=== PATIENT | male | born 1950 | race Caucasian/White ===

== ENCOUNTER 2017-04-09 09:35 | Emergency (ER) | payer SELFPAY ==
[~2017-04-09] VITALS: Wt 95.7 kg
[~2017-04-09 09:35] MED LIST: ASPIR-TRIN325 M1 PO; AUGMENTIN 875-1 EAC1 PO; BACTRIM DS 8001 TAB PO; ECOTRIN325 M1 PO; METFORMIN
[2017-04-09 16:04] VITALS: BP 138/79
== END 2017-04-09 16:05 | disposition other institution (70) ==
LOC: ED 09:35
DX: E13.10 Other specified diabetes mellitus with ketoacidosis without coma (principal); Z79.4 Long term (current) use of insulin; E11.42 Type 2 diabetes mellitus with diabetic polyneuropathy; E11.621 Type 2 diabetes mellitus with foot ulcer; L97.529 Non-pressure chronic ulcer of other part of left foot with unspecified severity; Z89.411 Acquired absence of right great toe; N39.0 Urinary tract infection, site not specified; Z91.14 Patient's other noncompliance with medication regimen
CPT/HCPCS: J0295; J1815; J7030

== ENCOUNTER 2017-04-14 16:25 | Inpatient (IN) | payer MEDICARE ==
[~2017-04-14] VITALS: Ht 175.3 cm; Wt 108.6 kg
[2017-04-14 19:24] VITALS: BP 134/74
[2017-04-14 19:56] VITALS: BP 134/7
[2017-04-15 06:16] VITALS: BP 146/79
[2017-04-15 18:30] VITALS: BP 128/79
[2017-04-16 06:16] VITALS: BP 158/78
[2017-04-16 18:11] VITALS: BP 135/71
[2017-04-17 06:23] VITALS: BP 123/84
[2017-04-17 18:23] VITALS: BP 147/72
[2017-04-18 06:25] VITALS: BP 123/72
[2017-04-18 18:01] VITALS: BP 126/71
[2017-04-18 18:10] VITALS: BP 118/72
[2017-04-19 06:23] VITALS: BP 111/57
[2017-04-19 18:38] VITALS: BP 122/92
[2017-04-20 06:21] VITALS: BP 124/78
[2017-04-20 18:19] VITALS: BP 111/53
[2017-04-21 06:20] VITALS: BP 101/68
[2017-04-21 18:22] VITALS: BP 118/62
[2017-04-22 06:29] VITALS: BP 102/60
[2017-04-22 18:07] VITALS: BP 119/66
[2017-04-23 06:22] VITALS: BP 121/79
[2017-04-23 18:36] VITALS: BP 117/64
[2017-04-24 06:24] VITALS: BP 115/57
[2017-04-24 18:35] VITALS: BP 112/55
[2017-04-25 06:24] VITALS: BP 121/78
== END 2017-04-25 08:27 | disposition short-term general hospital (02) | DRG 872 ==
LOC: MED/SURG 16:25
PROVIDERS: ADMIT Internal Medicine
DX: A41.9 Sepsis, unspecified organism (principal); M86.172 Other acute osteomyelitis, left ankle and foot; E23.0 Hypopituitarism; E11.42 Type 2 diabetes mellitus with diabetic polyneuropathy; E11.69 Type 2 diabetes mellitus with other specified complication; B95.61 Methicillin susceptible Staphylococcus aureus infection as the cause of diseases classified elsewhere
CPT/HCPCS: J1071; J1644; J1650; J1815; J2997; J3370; J7050

== ENCOUNTER 2017-04-27 13:42 | Inpatient (IN) | payer MEDICARE ==
[~2017-04-27] VITALS: Ht 175.3 cm; Wt 104.4 kg
[2017-04-27 15:00] VITALS: BP 103/68
[2017-04-27 15:45] VITALS: BP 103/68
[2017-04-27] MEDS ORDERED: GLUCOPHAGE1000 MG PO (18:00)
[2017-04-27] MEDS ORDERED: VIBRAMYCIN HYC100 MG PO (18:00)
[2017-04-27] MEDS ORDERED: JANUVIA 100MG100 MG (18:01)
[2017-04-27] MEDS ORDERED: LEVEMIR100 U/M1 SQ (18:01)
[2017-04-27] MEDS ORDERED: PROTONIX TR40 M1 PO (18:01)
[2017-04-27] MEDS ORDERED: NORCO 325 MG-51 TA1 PO (18:02)
[2017-04-27 18:30] VITALS: BP 124/70
[2017-04-28 06:21] VITALS: BP 125/72
[2017-04-28 18:33] VITALS: BP 101/59
[2017-04-29 06:20] VITALS: BP 122/75
[2017-04-29] MEDS ORDERED: METFORMIN HCL1000 M1 PO (10:21)
[2017-04-29] MEDS ORDERED: CHILDREN'S ASPI81 M1 PO (10:22)
[2017-04-29] MEDS ORDERED: HYDROCODONE BIT1 T45 PO (10:22)
[2017-04-29 10:25] VITALS: BP 110/80
[2017-04-29 10:46] VITALS: BP 110/80
[2017-04-29] MEDS ORDERED: GLIMEPIRIDE4 MG PO (11:40)
== END 2017-04-29 12:31 | DRG 560 ==
LOC: MED/SURG 13:42
PROVIDERS: ADMIT Nurse Practitioner Primary Care
DX: Z47.81 Encounter for orthopedic aftercare following surgical amputation (principal); N39.0 Urinary tract infection, site not specified; E66.2 Morbid (severe) obesity with alveolar hypoventilation; Z89.412 Acquired absence of left great toe; R53.81 Other malaise; B95.62 Methicillin resistant Staphylococcus aureus infection as the cause of diseases classified elsewhere; E11.40 Type 2 diabetes mellitus with diabetic neuropathy, unspecified; Z79.4 Long term (current) use of insulin; Z68.33 Body mass index [BMI] 33.0-33.9, adult
CPT/HCPCS: J1650; J1815

== ENCOUNTER → 2017-05-13 | Outpatient (REF) ==
[2017-05-03 15:17] VITALS: BP 123/78
[~2017-05-13] MED LIST changes: +CHILDREN'S ASPI81 M1 PO; +GLIMEPIRIDE4 MG PO; +GLUCOPHAGE1000 MG PO; +HYDROCODONE BIT1 T45 PO; +JANUVIA 100MG100 MG; +LEVEMIR100 U/M1 SQ; +METFORMIN HCL1000 M1 PO; +NORCO 325 MG-51 TA1 PO; +PROTONIX TR40 M1 PO; +VIBRAMYCIN HYC100 MG PO
== END ==
LOC: LAB 12:13
DX: N39.0 Urinary tract infection, site not specified (principal)

== ENCOUNTER 2017-05-30 12:37 | Emergency (ER) | payer MEDICARE ==
[~2017-05-30] VITALS: Wt 106.4 kg
[2017-05-30 15:02] VITALS: BP 128/83
== END 2017-05-30 15:06 | disposition home or self-care (01) ==
LOC: ED 12:37
DX: R11.0 Nausea (principal); R10.84 Generalized abdominal pain; R61 Generalized hyperhidrosis; E73.9 Lactose intolerance, unspecified; E11.9 Type 2 diabetes mellitus without complications; Z79.84 Long term (current) use of oral hypoglycemic drugs

== ENCOUNTER → 2017-06-28 | Outpatient (CLI) | payer MEDICARE, MEDICAID ==
[2017-05-30 15:02] VITALS: BP 128/83
== END ==
LOC: LAB 05:05
DX: E11.42 Type 2 diabetes mellitus with diabetic polyneuropathy (principal); E87.6 Hypokalemia; E78.2 Mixed hyperlipidemia

== ENCOUNTER → 2017-10-24 | Outpatient (CLI) | payer MEDICAID | LOC: LAB 11:12 | DX: J11.1 Influenza due to unidentified influenza virus with other respiratory manifestations (principal) ==

== ENCOUNTER → 2017-11-03 | Outpatient (CLI) | payer MEDICAID ==
[2017-11-03 10:50] LABS: EOS # 0.1 (0.04-0.40); EOS % 1.6 % (0.0-4.0); HEMATOCRIT 47.3 % (42.0-52.0); HEMOGLOBIN 15.5 g/dL (13.5-18.0); LYMPH# 2.1 (1.50-4.00); MEAN CELL VOLUME 90 fl (78-100); MEAN CORPUSCULAR HEMOGLOBIN 30 pg (27-31); MEAN CORPUSCULAR HGB CONC 33 g/dL (33-37); MEAN PLATELET VOLUME 10.1 fl (7.4-10.4); MONO # 0.5 (0.20-0.80); NEU # 4.8 (1.40-6.50); PLATELET COUNT 265 K/mm3 (130-400); RED BLOOD COUNT 5.24 M/mm3 (4.20-5.60); WHITE BLOOD COUNT 7.5 K/mm3 (4.8-10.8)
== END ==
LOC: RAD 10:30
PROVIDERS: Nurse Practitioner Family
DX: R05 Cough (principal)

== ENCOUNTER → 2018-01-12 | Outpatient (CLI) | payer MEDICARE, MEDICAID ==
[2018-01-12 11:02] LABS: EOS # 0.2 (0.04-0.40); HEMATOCRIT 47.6 % (42.0-52.0); HEMOGLOBIN 15.9 g/dL (13.5-18.0); LYMPH# 1.9 (1.50-4.00); MEAN CELL VOLUME 91 fl (78-100); MEAN CORPUSCULAR HEMOGLOBIN 30 pg (27-31); MEAN CORPUSCULAR HGB CONC 33 g/dL (33-37); MONO # 0.7 (0.20-0.80); NEU # 5.4 (1.40-6.50); PLATELET COUNT 227 K/mm3 (130-400); RED BLOOD COUNT 5.26 M/mm3 (4.20-5.60); RED CELL DISTRIBUTION WIDTH 13.9 % (11.5-14.5); WHITE BLOOD COUNT 8.2 K/mm3 (4.8-10.8)
[2018-01-12 11:20] LABS: ALBUMIN 4.1 g/dL (3.5-5.0); BUN/CREATININE RATIO 18.8 (6.0-26.0); CALCIUM 9.3 mg/dL (8.4-10.2); POTASSIUM 4.3 mmol/L (3.6-5.0); TOTAL BILIRUBIN 0.4 mg/dL (0.2-1.3); TOTAL PROTEIN 7.8 g/dL (6.3-8.2)
== END ==
LOC: LAB 10:47
PROVIDERS: Internal Medicine
DX: E11.9 Type 2 diabetes mellitus without complications (principal); Z12.5 Encounter for screening for malignant neoplasm of prostate; E78.2 Mixed hyperlipidemia

== ENCOUNTER → 2018-01-30 | Day surgery (SDC) | payer MEDICARE, MEDICAID | LOC: MSO 08:08 | DX: D04.39 Carcinoma in situ of skin of other parts of face (principal); E11.9 Type 2 diabetes mellitus without complications; Z79.82 Long term (current) use of aspirin; Z79.84 Long term (current) use of oral hypoglycemic drugs | CPT/HCPCS: 2543; A4649 ==

== ENCOUNTER → 2018-06-13 | Outpatient (CLI) | payer MEDICARE, MEDICAID ==
[2018-06-13 10:48] LABS: BASO # 0.1 (0.02-0.10); EOS # 0.2 (0.04-0.40); EOS % 2.3 % (0.0-4.0); HEMATOCRIT 49.1 % (42.0-52.0); HEMOGLOBIN 16.3 g/dL (13.5-18.0); LYMPH# 1.8 (1.50-4.00); MEAN CELL VOLUME 91 fl (78-100); MEAN CORPUSCULAR HEMOGLOBIN 30 pg (27-31); MEAN CORPUSCULAR HGB CONC 33 g/dL (33-37); MEAN PLATELET VOLUME 10.3 fl (7.4-10.4); MONO # 0.7 (0.20-0.80); NEU # 6.5 (1.40-6.50); PLATELET COUNT 246 K/mm3 (130-400); RED BLOOD COUNT 5.37 M/mm3 (4.20-5.60); RED CELL DISTRIBUTION WIDTH 14.4 % (11.5-14.5); WHITE BLOOD COUNT 9.3 K/mm3 (4.8-10.8)
[2018-06-13 11:12] LABS: URINE APPEARANCE CLEAR; URINE BILIRUBIN NEGATIVE (NEGATIVE); URINE BLOOD NEGATIVE (NEGATIVE); URINE COLOR YELLOW; URINE GLUCOSE NEGATIVE (NEGATIVE); URINE KETONE NEGATIVE (NEGATIVE); URINE LEUKOCYTE ESTERASE 1+ (NEGATIVE); URINE NITRATE NEGATIVE (NEGATIVE); URINE PROTEIN(semi-quant) NEGATIVE (NEGATIVE); URINE UROBILINOGEN NORMAL (NORMAL); URINE WBC 16-30 /hpf (0-3)
[2018-06-13 11:13] LABS: URINE MUCUS PRESENT (NOT PRESENT)
[2018-06-13 11:20] LABS: CALCIUM 9.2 mg/dL (8.4-10.2); POTASSIUM 4.6 mmol/L (3.6-5.0); TOTAL BILIRUBIN 0.7 mg/dL (0.2-1.3); TOTAL PROTEIN 7.3 g/dL (6.3-8.2)
[2018-06-13 12:46] LABS: ERYTHROCYTE SEDIMENTATION RATE 13 mm/hr (0-20)
[2018-06-15 01:01] LABS: TESTOSTERONE 533 ng/dL (221-716)
== END ==
LOC: LAB 10:21
PROVIDERS: Internal Medicine
DX: Z12.11 Encounter for screening for malignant neoplasm of colon (principal); E11.9 Type 2 diabetes mellitus without complications; E78.2 Mixed hyperlipidemia; E23.0 Hypopituitarism; N39.0 Urinary tract infection, site not specified

== ENCOUNTER → 2018-08-07 | Day surgery (SDC) | payer MEDICARE, MEDICAID | LOC: MSO 10:19 | DX: C44.329 Squamous cell carcinoma of skin of other parts of face (principal); D04.39 Carcinoma in situ of skin of other parts of face; Z79.82 Long term (current) use of aspirin; Z79.84 Long term (current) use of oral hypoglycemic drugs; Z79.899 Other long term (current) drug therapy; E11.9 Type 2 diabetes mellitus without complications; E78.5 Hyperlipidemia, unspecified; E66.9 Obesity, unspecified | CPT/HCPCS: A4649 ==

== ENCOUNTER → 2018-12-01 | Outpatient (CLI) | payer MEDICARE, MEDICAID ==
[2018-12-01 14:37] LABS: CALCIUM 8.9 mg/dL (8.4-10.2); POTASSIUM 4.4 mmol/L (3.6-5.0); TOTAL BILIRUBIN 0.4 mg/dL (0.2-1.3); TOTAL PROTEIN 7.3 g/dL (6.3-8.2)
[2018-12-01 14:47] LABS: EOS # 0.4 (0.04-0.40); EOS % 4.1 % (0.0-4.0); HEMATOCRIT 49.2 % (42.0-52.0); HEMOGLOBIN 16.2 g/dL (13.5-18.0); LYMPH# 2.1 (1.50-4.00); MEAN CELL VOLUME 92 fl (78-100); MEAN CORPUSCULAR HEMOGLOBIN 30 pg (27-31); MEAN CORPUSCULAR HGB CONC 33 g/dL (33-37); MEAN PLATELET VOLUME 10.8 fl (7.4-10.4); MONO # 0.9 (0.20-0.80); NEU # 5.9 (1.40-6.50); PLATELET COUNT 269 K/mm3 (130-400); RED BLOOD COUNT 5.37 M/mm3 (4.20-5.60); RED CELL DISTRIBUTION WIDTH 14.2 % (11.5-14.5); WHITE BLOOD COUNT 9.4 K/mm3 (4.8-10.8)
== END ==
LOC: LAB 13:57
PROVIDERS: Internal Medicine
DX: E11.9 Type 2 diabetes mellitus without complications (principal); E78.2 Mixed hyperlipidemia

== ENCOUNTER → 2019-04-12 | Outpatient (CLI) | payer MEDICARE, MEDICAID ==
[2019-04-12 11:35] LABS: BASO # 0.1 (0.02-0.10); EOS # 0.4 (0.04-0.40); EOS % 3.6 % (0.0-4.0); HEMATOCRIT 49.5 % (42.0-52.0); HEMOGLOBIN 16.7 g/dL (13.5-18.0); LYMPH# 1.8 (1.50-4.00); MEAN CELL VOLUME 91 fl (78-100); MEAN CORPUSCULAR HEMOGLOBIN 31 pg (27-31); MEAN CORPUSCULAR HGB CONC 34 g/dL (33-37); MEAN PLATELET VOLUME 10.4 fl (7.4-10.4); MONO # 0.8 (0.20-0.80); NEU # 7.5 (1.40-6.50); PLATELET COUNT 264 K/mm3 (130-400); RED BLOOD COUNT 5.45 M/mm3 (4.20-5.60); WHITE BLOOD COUNT 10.6 K/mm3 (4.8-10.8)
[2019-04-12 11:43] LABS: ALBUMIN 3.8 g/dL (3.4-4.8); POTASSIUM 4.4 mmol/L (3.5-5.1)
[2019-04-12 11:44] LABS: CALCIUM 9.5 mg/dL (8.3-10.5)
[2019-04-12 11:45] LABS: TOTAL PROTEIN 7.2 g/dL (6.2-8.1)
[2019-04-12 11:47] LABS: TOTAL BILIRUBIN 0.7 mg/dL (0.2-1.2)
== END ==
LOC: LAB 11:25
PROVIDERS: Internal Medicine
DX: E78.2 Mixed hyperlipidemia (principal); E11.9 Type 2 diabetes mellitus without complications

== ENCOUNTER → 2019-11-15 | Outpatient (CLI) | payer MEDICARE, MEDICAID ==
[2019-11-15 11:11] LABS: EOS # 0.1 (0.04-0.40); EOS % 1.5 % (0.0-4.0); HEMATOCRIT 48.3 % (42.0-52.0); HEMOGLOBIN 16.1 g/dL (13.5-18.0); LYMPH# 1.5 (1.50-4.00); MEAN CELL VOLUME 91 fl (78-100); MEAN CORPUSCULAR HEMOGLOBIN 30 pg (27-31); MEAN CORPUSCULAR HGB CONC 33 g/dL (33-37); MEAN PLATELET VOLUME 10.3 fl (7.4-10.4); MONO # 0.8 (0.20-0.80); PLATELET COUNT 202 K/mm3 (130-400); RED BLOOD COUNT 5.32 M/mm3 (4.20-5.60); RED CELL DISTRIBUTION WIDTH 13.8 % (11.5-14.5); WHITE BLOOD COUNT 8.4 K/mm3 (4.8-10.8)
[2019-11-15 11:20] LABS: ALBUMIN 3.8 g/dL (3.4-4.8)
[2019-11-15 11:21] LABS: CALCIUM 8.8 mg/dL (8.3-10.5)
[2019-11-15 11:23] LABS: TOTAL PROTEIN 7.2 g/dL (6.2-8.1)
[2019-11-15 11:24] LABS: TOTAL BILIRUBIN 0.6 mg/dL (0.2-1.2)
[2019-11-15 11:30] LABS: MAGNESIUM 1.78 mg/dL (1.60-2.60)
[2019-11-15 12:14] LABS: ERYTHROCYTE SEDIMENTATION RATE 14 mm/hr (0-20)
[2019-11-15 16:38] LABS: PH-URINE 5.5 (5.0 - 8.0); URINE APPEARANCE HAZY; URINE BILIRUBIN NEGATIVE (NEGATIVE); URINE BLOOD NEGATIVE (NEGATIVE); URINE COLOR YELLOW; URINE GLUCOSE NEGATIVE (NEGATIVE); URINE KETONE NEGATIVE (NEGATIVE); URINE LEUKOCYTE ESTERASE TRACE (NEGATIVE); URINE NITRATE NEGATIVE (NEGATIVE); URINE PROTEIN(semi-quant) TRACE mg/dL (NEGATIVE); URINE UROBILINOGEN NORMAL (NORMAL)
[2019-11-15 16:39] LABS: URINE MUCUS PRESENT (NOT PRESENT)
[2019-11-15 23:49] LABS: TESTOSTERONE 184 ng/dL (221-716)
== END ==
LOC: LAB 10:55
PROVIDERS: Internal Medicine
DX: Z12.5 Encounter for screening for malignant neoplasm of prostate (principal); Z12.11 Encounter for screening for malignant neoplasm of colon; E11.42 Type 2 diabetes mellitus with diabetic polyneuropathy; E78.2 Mixed hyperlipidemia; E23.0 Hypopituitarism

== ENCOUNTER → 2020-04-29 | Outpatient (CLI) | payer MEDICARE, MEDICAID ==
[2020-04-29 11:20] LABS: EOS # 0.3 (0.04-0.40); EOS % 2.5 % (0.0-4.0); HEMATOCRIT 49.5 % (42.0-52.0); HEMOGLOBIN 16.3 g/dL (13.5-18.0); MEAN CELL VOLUME 92 fl (78-100); MEAN CORPUSCULAR HEMOGLOBIN 30 pg (27-31); MEAN CORPUSCULAR HGB CONC 33 g/dL (33-37); MEAN PLATELET VOLUME 10.2 fl (7.4-10.4); MONO # 0.8 (0.20-0.80); NEU # 6.7 (1.40-6.50); PLATELET COUNT 266 K/mm3 (130-400); RED BLOOD COUNT 5.36 M/mm3 (4.20-5.60); RED CELL DISTRIBUTION WIDTH 13.6 % (11.5-14.5); WHITE BLOOD COUNT 9.9 K/mm3 (4.8-10.8)
[2020-04-29 11:34] LABS: ALBUMIN 3.9 g/dL (3.4-4.8); POTASSIUM 4.8 mmol/L (3.5-5.1)
[2020-04-29 11:35] LABS: CALCIUM 9.3 mg/dL (8.3-10.5)
[2020-04-29 11:36] LABS: TOTAL PROTEIN 7.3 g/dL (6.2-8.1)
[2020-04-29 11:38] LABS: TOTAL BILIRUBIN 0.5 mg/dL (0.2-1.2)
== END ==
LOC: LAB 10:56
PROVIDERS: Internal Medicine
DX: E11.42 Type 2 diabetes mellitus with diabetic polyneuropathy (principal); E78.2 Mixed hyperlipidemia; K90.9 Intestinal malabsorption, unspecified

== ENCOUNTER → 2020-05-28 | Outpatient (CLI) | payer MEDICARE, MEDICAID | LOC: LAB 10:19 | DX: K90.9 Intestinal malabsorption, unspecified (principal); G63 Polyneuropathy in diseases classified elsewhere ==

== ENCOUNTER → 2020-09-15 | Outpatient (CLI) | payer MEDICARE, MEDICAID ==
[2020-09-15 09:35] LABS: EOS # 0.3 (0.04-0.40); EOS % 2.6 % (0.0-4.0); HEMATOCRIT 47.8 % (42.0-52.0); HEMOGLOBIN 15.6 g/dL (13.5-18.0); MEAN CELL VOLUME 93 fl (78-100); MEAN CORPUSCULAR HEMOGLOBIN 30 pg (27-31); MEAN CORPUSCULAR HGB CONC 33 g/dL (33-37); MEAN PLATELET VOLUME 10.4 fl (7.4-10.4); MONO # 0.7 (0.20-0.80); NEU # 6.6 (1.40-6.50); PLATELET COUNT 260 K/mm3 (130-400); RED BLOOD COUNT 5.17 M/mm3 (4.20-5.60); WHITE BLOOD COUNT 9.7 K/mm3 (4.8-10.8)
[2020-09-15 09:42] LABS: ALBUMIN 3.8 g/dL (3.4-4.8)
[2020-09-15 09:43] LABS: POTASSIUM 4.6 mmol/L (3.5-5.1)
[2020-09-15 09:45] LABS: TOTAL PROTEIN 7.1 g/dL (6.2-8.1)
[2020-09-15 09:47] LABS: TOTAL BILIRUBIN 0.5 mg/dL (0.2-1.2)
== END ==
LOC: LAB 09:11
PROVIDERS: Internal Medicine
DX: E11.9 Type 2 diabetes mellitus without complications (principal); K90.9 Intestinal malabsorption, unspecified

== ENCOUNTER → 2020-12-16 | Outpatient (CLI) | payer MEDICARE, MEDICAID | LOC: LAB 11:23 | DX: Z12.5 Encounter for screening for malignant neoplasm of prostate (principal); G62.9 Polyneuropathy, unspecified; E11.9 Type 2 diabetes mellitus without complications; K90.9 Intestinal malabsorption, unspecified ==

== ENCOUNTER → 2022-01-14 | Outpatient (CLI) | payer MEDICARE, MEDICAID ==
[2022-01-14 16:05] LABS: BASO # 0.06 K/mm3 (0.02-0.10); EOS # 0.24 K/mm3 (0.04-0.40); EOS % 2.4 % (0.0-4.0); HEMATOCRIT 46.8 % (42.0-52.0); HEMOGLOBIN 15.6 g/dL (13.5-18.0); LYMPH# 2.36 K/mm3 (1.50-4.00); MEAN CELL VOLUME 92 fl (78-100); MEAN CORPUSCULAR HEMOGLOBIN 31 pg (27-31); MEAN CORPUSCULAR HGB CONC 33 g/dL (33-37); MONO # 0.87 K/mm3 (0.20-0.80); NEU # 6.46 K/mm3 (1.40-6.50); PLATELET COUNT 256 K/mm3 (130-400); RED BLOOD COUNT 5.08 M/mm3 (4.20-5.60); RED CELL DISTRIBUTION WIDTH 12.7 % (11.5-14.5)
[2022-01-14 16:15] LABS: POTASSIUM 4.3 mmol/L (3.5-5.1)
[2022-01-14 16:16] LABS: CALCIUM 9.6 mg/dL (8.3-10.5)
[2022-01-14 16:18] LABS: TOTAL PROTEIN 7.2 g/dL (6.2-8.1)
[2022-01-14 16:19] LABS: TOTAL BILIRUBIN 0.5 mg/dL (0.2-1.2)
[2022-01-14 16:24] LABS: MAGNESIUM 1.86 mg/dL (1.60-2.60)
[2022-01-14 16:58] LABS: URINE APPEARANCE HAZY; URINE COLOR YELLOW; URINE PROTEIN(semi-quant) 1+ (NEGATIVE)
[2022-01-14 16:59] LABS: URINE BILIRUBIN NEGATIVE (NEGATIVE); URINE BLOOD NEGATIVE (NEGATIVE); URINE KETONE NEGATIVE (NEGATIVE); URINE LEUKOCYTE ESTERASE 2+ (NEGATIVE); URINE NITRATE NEGATIVE (NEGATIVE); URINE UROBILINOGEN NORMAL (NORMAL)
[2022-01-14 17:01] LABS: URINE MUCUS PRESENT (NOT PRESENT)
[2022-01-14 17:13] LABS: ERYTHROCYTE SEDIMENTATION RATE 16 mm/hr (0-20)
[2022-01-15 17:05] LABS: TESTOSTERONE 273 ng/dL (221-716)
== END ==
LOC: LAB 15:39
PROVIDERS: Internal Medicine
DX: L89.899 Pressure ulcer of other site, unspecified stage (principal); L57.0 Actinic keratosis; K90.9 Intestinal malabsorption, unspecified; E23.0 Hypopituitarism; E78.2 Mixed hyperlipidemia; G62.9 Polyneuropathy, unspecified; E11.9 Type 2 diabetes mellitus without complications; C44.329 Squamous cell carcinoma of skin of other parts of face; M54.50 Low back pain, unspecified

== ENCOUNTER → 2022-07-16 | Outpatient (CLI) | payer MEDICARE, MEDICAID ==
[2022-07-16 11:39] LABS: BASO # 0.03 K/mm3 (0.02-0.10); EOS # 0.25 K/mm3 (0.04-0.40); EOS % 2.5 % (0.0-4.0); HEMATOCRIT 46.8 % (42.0-52.0); HEMOGLOBIN 15.6 g/dL (13.5-18.0); LYMPH# 2.07 K/mm3 (1.50-4.00); MEAN CELL VOLUME 93 fl (78-100); MEAN CORPUSCULAR HEMOGLOBIN 31 pg (27-31); MEAN CORPUSCULAR HGB CONC 33 g/dL (33-37); MEAN PLATELET VOLUME 10.4 fl (7.4-10.4); MONO # 0.64 K/mm3 (0.20-0.80); NEU # 6.84 K/mm3 (1.40-6.50); PLATELET COUNT 223 K/mm3 (130-400); RED BLOOD COUNT 5.04 M/mm3 (4.20-5.60); RED CELL DISTRIBUTION WIDTH 13.1 % (11.5-14.5); WHITE BLOOD COUNT 9.9 K/mm3 (4.8-10.8)
[2022-07-16 11:51] LABS: POTASSIUM 4.5 mmol/L (3.5-5.1)
[2022-07-16 11:52] LABS: ALBUMIN 3.9 g/dL (3.4-4.8)
[2022-07-16 11:53] LABS: CALCIUM 9.3 mg/dL (8.3-10.5)
[2022-07-16 11:54] LABS: TOTAL PROTEIN 7.1 g/dL (6.2-8.1)
[2022-07-16 12:10] LABS: MAGNESIUM 1.84 mg/dL (1.60-2.60); TOTAL BILIRUBIN 0.4 mg/dL (0.2-1.2)
[2022-07-16 12:45] LABS: ERYTHROCYTE SEDIMENTATION RATE 15 mm/hr (0-20)
[2022-07-16 23:10] LABS: TESTOSTERONE 235 ng/dL (221-716)
== END ==
LOC: LAB 11:07
PROVIDERS: Internal Medicine
DX: K90.9 Intestinal malabsorption, unspecified (principal); E11.9 Type 2 diabetes mellitus without complications; E78.2 Mixed hyperlipidemia; E23.0 Hypopituitarism; C44.329 Squamous cell carcinoma of skin of other parts of face; M54.50 Low back pain, unspecified; L89.899 Pressure ulcer of other site, unspecified stage; G62.9 Polyneuropathy, unspecified; M62.81 Muscle weakness (generalized); R09.81 Nasal congestion

== ENCOUNTER 2023-05-12 20:51 | Inpatient (IN) | payer MEDICARE, MEDICAID ==
[~2023-05-12] VITALS: Ht 175.3 cm; Wt 110.6 kg
[~2023-05-12 20:51] MED LIST changes: +AMOXICILLIN875 MG PO; +ATORVASTATIN CA20 MG PO; +CIPRO 500MG TA500 MG PO; +CIPRO500 M1 PO; +COLACE100 M1 PO; +FLONASE ALLERG9.9 ML NS; +LEVOCETIRIZINE D5 MG PO; +MELOXICAM15 MG PO; +PIOGLITAZONE HC30 MG PO; +TRULICITY1.5 MG/0.5 SC; +VITAMIN D21250 MCG PO
[2023-05-12 22:09] VITALS: BP 125/69
[2023-05-13 02:05] VITALS: BP 106/67
[2023-05-13 05:47] VITALS: BP 105/67
[2023-05-13 07:20] LABS: BASO # 0.03 K/mm3 (0.02-0.10); EOS # 0.39 K/mm3 (0.04-0.40); EOS % 4.6 % (0.0-4.0); HEMATOCRIT 36.9 % (42.0-52.0); LYMPH# 1.56 K/mm3 (1.50-4.00); MEAN CELL VOLUME 97 fl (78-100); MEAN CORPUSCULAR HEMOGLOBIN 31 pg (27-31); MEAN CORPUSCULAR HGB CONC 33 g/dL (33-37); MEAN PLATELET VOLUME 9.7 fl (7.4-10.4); NEU # 5.55 K/mm3 (1.40-6.50); PLATELET COUNT 254 K/mm3 (130-400); RED BLOOD COUNT 3.82 M/mm3 (4.20-5.60); RED CELL DISTRIBUTION WIDTH 13.5 % (11.5-14.5); WHITE BLOOD COUNT 8.4 K/mm3 (4.8-10.8)
[2023-05-13 07:24] LABS: POTASSIUM 4.2 mmol/L (3.5-5.1)
[2023-05-13 08:57] VITALS: BP 112/76
[2023-05-13 14:12] VITALS: BP 120/73
[2023-05-13 16:57] VITALS: BP 140/71
[2023-05-13 21:49] VITALS: BP 117/63
[2023-05-14 05:44] VITALS: BP 122/70
[2023-05-14 10:34] VITALS: BP 118/67
[2023-05-14 13:16] VITALS: BP 136/81
[2023-05-14 17:04] VITALS: BP 127/72
[2023-05-14 21:42] VITALS: BP 132/73
[2023-05-15 05:44] VITALS: BP 105/52
[2023-05-15 10:07] VITALS: BP 131/66
[2023-05-15 13:47] VITALS: BP 133/73
[2023-05-15 14:00] LABS: URINE APPEARANCE HAZY; URINE BILIRUBIN NEGATIVE (NEGATIVE); URINE BLOOD TRACE (NEGATIVE); URINE COLOR YELLOW; URINE GLUCOSE NEGATIVE (NEGATIVE); URINE KETONE NEGATIVE (NEGATIVE); URINE LEUKOCYTE ESTERASE 1+ (NEGATIVE); URINE NITRATE NEGATIVE (NEGATIVE); URINE PROTEIN(semi-quant) TRACE (NEGATIVE); URINE UROBILINOGEN NORMAL (NORMAL)
[2023-05-15 14:01] LABS: URINE MUCUS PRESENT (NOT PRESENT)
[2023-05-15 17:07] VITALS: BP 126/66; BP 153/77
[2023-05-15 22:02] VITALS: BP 119/64
[2023-05-16 05:54] VITALS: BP 115/71
[2023-05-16 09:31] VITALS: BP 134/78
[2023-05-16 14:03] VITALS: BP 142/72
[2023-05-16 18:17] VITALS: BP 146/82
[2023-05-16 22:02] VITALS: BP 130/66
[2023-05-17 02:20] VITALS: BP 113/68
[2023-05-17 05:51] VITALS: BP 124/73
[2023-05-17 10:21] VITALS: BP 117/73
[2023-05-17 12:42] LABS: BASO # 0.03 K/mm3 (0.02-0.10); EOS # 0.29 K/mm3 (0.04-0.40); EOS % 3.2 % (0.0-4.0); HEMATOCRIT 38.4 % (42.0-52.0); HEMOGLOBIN 12.6 g/dL (13.5-18.0); LYMPH# 1.61 K/mm3 (1.50-4.00); MEAN CELL VOLUME 97 fl (78-100); MEAN CORPUSCULAR HEMOGLOBIN 32 pg (27-31); MEAN CORPUSCULAR HGB CONC 33 g/dL (33-37); MEAN PLATELET VOLUME 9.5 fl (7.4-10.4); MONO # 0.75 K/mm3 (0.20-0.80); NEU # 6.23 K/mm3 (1.40-6.50); PLATELET COUNT 274 K/mm3 (130-400); RED BLOOD COUNT 3.98 M/mm3 (4.20-5.60); RED CELL DISTRIBUTION WIDTH 13.6 % (11.5-14.5)
[2023-05-17 12:45] LABS: ALBUMIN 2.9 g/dL (3.4-4.8)
[2023-05-17 12:46] LABS: POTASSIUM 4.3 mmol/L (3.5-5.1)
[2023-05-17 12:47] LABS: CALCIUM 9.1 mg/dL (8.3-10.5)
[2023-05-17 12:48] LABS: TOTAL PROTEIN 6.3 g/dL (6.2-8.1)
[2023-05-17 12:50] LABS: TOTAL BILIRUBIN 0.3 mg/dL (0.2-1.2)
[2023-05-17 13:33] VITALS: BP 118/76
[2023-05-17 17:10] VITALS: BP 107/72
[2023-05-17 21:43] VITALS: BP 115/72
[2023-05-18 05:38] VITALS: BP 159/72
[2023-05-18 08:10] LABS: ALBUMIN 2.8 g/dL (3.4-4.8)
[2023-05-18 08:11] LABS: BASO # 0.04 K/mm3 (0.02-0.10); EOS # 0.35 K/mm3 (0.04-0.40); EOS % 3.9 % (0.0-4.0); HEMATOCRIT 39.1 % (42.0-52.0); HEMOGLOBIN 12.7 g/dL (13.5-18.0); LYMPH# 1.74 K/mm3 (1.50-4.00); MEAN CELL VOLUME 97 fl (78-100); MEAN CORPUSCULAR HEMOGLOBIN 31 pg (27-31); MEAN CORPUSCULAR HGB CONC 33 g/dL (33-37); MEAN PLATELET VOLUME 9.9 fl (7.4-10.4); MONO # 0.74 K/mm3 (0.20-0.80); NEU # 6.08 K/mm3 (1.40-6.50); PLATELET COUNT 285 K/mm3 (130-400); POTASSIUM 4.2 mmol/L (3.5-5.1); RED BLOOD COUNT 4.05 M/mm3 (4.20-5.60); RED CELL DISTRIBUTION WIDTH 13.5 % (11.5-14.5); WHITE BLOOD COUNT 9.1 K/mm3 (4.8-10.8)
[2023-05-18 08:12] LABS: CALCIUM 8.9 mg/dL (8.3-10.5)
[2023-05-18 08:15] LABS: TOTAL BILIRUBIN 0.3 mg/dL (0.2-1.2)
[2023-05-18 09:25] VITALS: BP 123/85
[2023-05-18] MEDS ORDERED: BACTRIM DS TAB1 EACH PO (11:19)
[2023-05-18 13:46] VITALS: BP 133/81
[2023-05-18 17:09] VITALS: BP 118/82
[2023-05-18 22:09] VITALS: BP 120/69
[2023-05-19 05:49] VITALS: BP 113/68
[2023-05-19 09:16] VITALS: BP 107/75
[2023-05-19 09:39] VITALS: BP 107/75
== END 2023-05-19 10:00 | disposition home or self-care (01) | DRG 603 ==
LOC: MED/SURG 20:51
PROVIDERS: Family Medicine; Physician Assistant; ADMIT Nurse Practitioner
PROC: 0J9R0ZZ Drainage of Left Foot Subcutaneous Tissue and Fascia, Open Approach (ICD-10-PCS; principal; 2023-05-17)
DX: L03.032 Cellulitis of left toe (principal); K90.9 Intestinal malabsorption, unspecified; L97.529 Non-pressure chronic ulcer of other part of left foot with unspecified severity; E11.621 Type 2 diabetes mellitus with foot ulcer; E11.65 Type 2 diabetes mellitus with hyperglycemia; E11.42 Type 2 diabetes mellitus with diabetic polyneuropathy; E78.5 Hyperlipidemia, unspecified; E66.9 Obesity, unspecified; J30.9 Allergic rhinitis, unspecified; Z89.412 Acquired absence of left great toe; Z89.411 Acquired absence of right great toe
CPT/HCPCS: J0692; J1836; L4386

== ENCOUNTER → 2023-06-07 | Outpatient (CLI) | payer MEDICARE, MEDICAID ==
[~2023-06-07] MED LIST changes: +BACTRIM DS TAB1 EACH PO
[2023-06-07 13:18] LABS: URINE APPEARANCE HAZY; URINE BILIRUBIN NEGATIVE (NEGATIVE); URINE BLOOD NEGATIVE (NEGATIVE); URINE COLOR YELLOW; URINE GLUCOSE NEGATIVE (NEGATIVE); URINE KETONE NEGATIVE (NEGATIVE); URINE LEUKOCYTE ESTERASE TRACE (NEGATIVE); URINE NITRATE NEGATIVE (NEGATIVE); URINE PROTEIN(semi-quant) TRACE (NEGATIVE); URINE UROBILINOGEN NORMAL (NORMAL)
[2023-06-07 13:19] LABS: URINE MUCUS PRESENT (NOT PRESENT)
== END ==
LOC: LAB 11:22
PROVIDERS: Internal Medicine
DX: N39.0 Urinary tract infection, site not specified (principal)

== ENCOUNTER → 2023-06-22 | Outpatient (CLI) | payer MEDICARE, MEDICAID ==
[2023-06-22 09:56] LABS: URINE APPEARANCE CLEAR; URINE COLOR YELLOW; URINE PROTEIN(semi-quant) TRACE (NEGATIVE)
[2023-06-22 09:57] LABS: URINE BILIRUBIN NEGATIVE (NEGATIVE); URINE BLOOD TRACE (NEGATIVE); URINE GLUCOSE NEGATIVE (NEGATIVE); URINE KETONE NEGATIVE (NEGATIVE); URINE NITRATE NEGATIVE (NEGATIVE); URINE UROBILINOGEN NORMAL (NORMAL)
[2023-06-22 09:58] LABS: URINE MUCUS PRESENT (NOT PRESENT)
[2023-06-22 09:59] LABS: URINE LEUKOCYTE ESTERASE 1+ (NEGATIVE)
== END ==
LOC: LAB 09:20
PROVIDERS: Internal Medicine
DX: N39.0 Urinary tract infection, site not specified (principal)

== ENCOUNTER → 2024-02-01 | Outpatient (CLI) | payer MEDICARE, MEDICAID ==
[2024-03-20 08:10] LABS: PH-URINE 6.5 (5.0 - 8.0); URINE APPEARANCE CLEAR (CLEAR); URINE BILIRUBIN NEGATIVE (NEGATIVE); URINE COLOR YELLOW (YELLOW); URINE GLUCOSE NEGATIVE (NEGATIVE); URINE KETONE NEGATIVE (NEGATIVE); URINE PROTEIN(semi-quant) NEGATIVE (NEGATIVE)
[2024-03-20 08:11] LABS: URINE BLOOD NEGATIVE (NEGATIVE); URINE LEUKOCYTE ESTERASE 1+ (NEGATIVE); URINE NITRATE NEGATIVE (NEGATIVE)
[2024-03-20 08:12] LABS: URINE MUCUS PRESENT (NOT PRESENT)
== END ==
LOC: LAB 11:15
PROVIDERS: Internal Medicine
DX: N39.0 Urinary tract infection, site not specified (principal)

== ENCOUNTER → 2024-03-02 | Outpatient (CLI) | payer MEDICARE, MEDICAID ==
[2024-03-02 22:30] LABS: FOLLICLE STIMULATING HORMONE 3.1 mIU/mL (1.0-12.0); LUTENIZING HORMONE 1.9 mIU/mL (0.6-12.1); PROLACTIN AMS 20.6 ng/mL (3.5-19.4)
== END ==
LOC: LAB 10:08
PROVIDERS: Internal Medicine
DX: M48.062 Spinal stenosis, lumbar region with neurogenic claudication (principal); R89.1 Abnormal level of hormones in specimens from other organs, systems and tissues

== ENCOUNTER → 2024-09-04 | Outpatient (CLI) | payer MEDICARE, MEDICAID ==
[2024-09-04 12:12] LABS: BASO # 0.02 K/mm3 (0.02-0.10); EOS # 0.24 K/mm3 (0.04-0.40); EOS % 3.1 % (0.0-4.0); HEMATOCRIT 44.2 % (42.0-52.0); HEMOGLOBIN 14.3 g/dL (13.5-18.0); LYMPH# 1.61 K/mm3 (1.50-4.00); MEAN CELL VOLUME 98 fl (78-100); MEAN CORPUSCULAR HEMOGLOBIN 32 pg (27-31); MEAN CORPUSCULAR HGB CONC 32 g/dL (33-37); MEAN PLATELET VOLUME 10.3 fl (7.4-10.4); NEU # 5.18 K/mm3 (1.40-6.50); PLATELET COUNT 200 K/mm3 (130-400); RED BLOOD COUNT 4.49 M/mm3 (4.20-5.60); RED CELL DISTRIBUTION WIDTH 14.7 % (11.5-14.5); WHITE BLOOD COUNT 7.8 K/mm3 (4.8-10.8)
[2024-09-04 12:16] LABS: ALBUMIN 3.9 g/dL (3.4-4.8)
[2024-09-04 12:17] LABS: CALCIUM 9.3 mg/dL (8.3-10.5)
[2024-09-04 12:18] LABS: TOTAL PROTEIN 7.1 g/dL (6.2-8.1)
[2024-09-04 12:20] LABS: TOTAL BILIRUBIN 0.4 mg/dL (0.2-1.2)
[2024-09-04 12:25] LABS: MAGNESIUM 1.88 mg/dL (1.60-2.60)
[2024-09-05 00:03] LABS: FOLLICLE STIMULATING HORMONE 2.9 mIU/mL (1.0-12.0); LUTENIZING HORMONE 2.3 mIU/mL (0.6-12.1); TESTOSTERONE 355 ng/dL (221-716)
== END ==
LOC: LAB 11:47
PROVIDERS: Internal Medicine
DX: K90.9 Intestinal malabsorption, unspecified (principal); E23.0 Hypopituitarism; E78.2 Mixed hyperlipidemia; G62.9 Polyneuropathy, unspecified; E11.9 Type 2 diabetes mellitus without complications

== ENCOUNTER → 2024-09-05 | Outpatient (REF) | payer MEDICARE, MEDICAID ==
[2024-09-05 11:55] LABS: URINE APPEARANCE SLIGHTLY CLOUDY (CLEAR); URINE COLOR DARK YELLOW (YELLOW)
[2024-09-05 11:56] LABS: URINE BILIRUBIN NEGATIVE (NEGATIVE); URINE BLOOD NEGATIVE (NEGATIVE); URINE GLUCOSE NEGATIVE (NEGATIVE); URINE KETONE NEGATIVE (NEGATIVE); URINE LEUKOCYTE ESTERASE NEGATIVE (NEGATIVE); URINE MUCUS PRESENT (NOT PRESENT); URINE NITRATE NEGATIVE (NEGATIVE); URINE PROTEIN(semi-quant) NEGATIVE (NEGATIVE)
== END ==
LOC: LAB 11:29
PROVIDERS: Internal Medicine
DX: E11.9 Type 2 diabetes mellitus without complications (principal); K90.9 Intestinal malabsorption, unspecified; E23.0 Hypopituitarism; E78.2 Mixed hyperlipidemia; G62.9 Polyneuropathy, unspecified